=== PATIENT | female | born 1975 | race Caucasian/White ===

== ENCOUNTER 2020-04-18 16:50 | Emergency (ER) | payer SELFPAY ==
[2020-04-18 17:02] VITALS: BP 147/77; PULSE 86; RESP 16; TEMP 36.7; O2SAT 100
--- NOTE | 2020-04-18 17:12 | ED.EAR ---
HPI - Ear Problem General Chief complaint: Ear Stated complaint: Ear problem Time Seen by Provider: 04/18/20 17:07 Source: patient and RN notes reviewed Mode of arrival: ambulatory Limitations: no limitations History of Present Illness HPI Narrative: Patient presents today complaining of a possible insect into her left ear since last night. She reports a clogged sensation, but denies pain. Denies any additional symptoms. She has not tried any interventions prior to arrival. MD Complaint: other (Left ear clogging/possible foreign body) Related Data Home Medications Medication Instructions Recorded Confirmed drospirenone-e.[id number].FA 1 tablet PO DAILY 04/18/20 04/18/20 Allergies Allergy/AdvReac Type Severity Reaction Status Date / Time No Known Allergies Allergy Verified 04/18/20 17:03 Review of Systems Review of Systems: Narrative: CONSTITUTIONAL: Denies body aches, fever, chills, or sweats. EYES: Denies visual changes, redness, or discharge. ENT: Denies rhinorrhea, congestion, sore throat, or otalgia. Left ear-clogged with possible foreign body CARDIOVASCULAR: Denies chest pain, palpitations, or edema. RESPIRATORY: Denies cough or dyspnea. GASTROINTESTINAL: Denies abdominal pain, nausea, vomiting, or diarrhea. GENITOURINARY: Denies dysuria or hematuria. SKIN: Denies rash, itching, or wounds. MUSCULOSKELETAL: Denies back pain, joint pain, or myalgia. NEUROLOGIC: Denies headache, numbness, tingling, or weakness. PSYCH: Denies depression or anxiety. PMFSH Comments At time of signature, I have reviewed and agree with nursing past medical, surgical, social and family history unless otherwise noted. Please see nursing chart for further information. There is no relevant family history pertinent to the presenting complaint Exam Narrative: Exam Narrative: GENERAL: Well-appearing, well-nourished,tearful HEAD: Normocephalic, atraumatic. EYES: EOMI. No redness or drainage. Conjunctivae normal. ENT: Mucous membranes pink and moist. Nares clear. No rhinorrhea. TMs normal bilaterally with mild to moderate middle ear effusions bilaterally, left greater than right without evidence of infection. No foreign body noted. NECK: Normal AROM. Supple. No lymphadenopathy. CHEST: No respiratory distress. EXTREMITIES: Normal range of motion. No edema. SKIN: Warm, dry, no rash. Capillary refill normal. Normal skin turgor. NEURO: No focal deficits. Alert and oriented x3. Gait steady. PSYCH: Anxious Course Vital Signs Vital signs: Vital Signs Temperature 98.0 F 04/18/20 17:02 Pulse Rate 86 04/18/20 17:02 Respiratory Rate 16 04/18/20 17:02 Blood Pressure 147/77 H 04/18/20 17:02 Pulse Oximetry 100 04/18/20 17:02 Temperature 98.0 F 04/18/20 17:02 Pulse Rate 86 04/18/20 17:02 Respiratory Rate 16 04/18/20 17:02 Blood Pressure 147/77 H 04/18/20 17:02 Pulse Oximetry 100 04/18/20 17:02 Reviewed. Pt has been instructed to follow up with her PCP regarding her elevated blood pressure today. Medical Decision Making Differential Diagnosis Differential Diagnosis: Foreign body, otitis media, otitis externa, ruptured TM, serous otitis, eustachian tube dysfunction, cerumen impaction Vital Signs Vital Signs: Vital Signs Temperature 98.0 F 04/18/20 17:02 Pulse Rate 86 04/18/20 17:02 Respiratory Rate 16 04/18/20 17:02 Blood Pressure 147/77 H 04/18/20 17:02 Pulse Oximetry 100 04/18/20 17:02 Temperature 98.0 F 04/18/20 17:02 Pulse Rate 86 04/18/20 17:02 Respiratory Rate 16 04/18/20 17:02 Blood Pressure 147/77 H 04/18/20 17:02 Pulse Oximetry 100 04/18/20 17:02 Critical Care Time Critical Care Time Critical Care Time: No Discharge Plan Discharge Clinical Impression: Middle ear effusion Qualifiers: Laterality: left Qualified Code(s): H65.92 - Unspecified nonsuppurative otitis media, left ear Patient Disposition: Home, Self-Care Condition: Stable
== END 2020-04-18 17:15 | disposition home or self-care (01) ==
PROVIDERS: Emergency Provider Nurse Practitioner
DX: H65.92 Unspecified nonsuppurative otitis media, left ear (principal)
CPT/HCPCS: 99211; G0463

== ENCOUNTER 2021-04-20 07:50 | Outpatient (CLI) | payer OTHER, SELFPAY | END 2021-04-20 07:51 | disposition home or self-care (01) | LOC: ANHAUDIO 07:52 | PROVIDERS: Visit Provider Nurse Practitioner Family | DX: H90.3 Sensorineural hearing loss, bilateral (principal) | CPT/HCPCS: 92537; 92540; 92546; 92557; 92567 ==

== ENCOUNTER 2023-04-17 15:23 | Emergency (ER) | payer OTHER, SELFPAY ==
[2023-04-17 15:44] VITALS: BP 136/73; PULSE 80; RESP 16; TEMP 36.7; O2SAT 100
--- NOTE | 2023-04-17 17:19 | PC.NURSE ---
states unable to wait any longer and follow up with pmd. alert and oriented x4.
== END 2023-04-17 17:32 | disposition left against medical advice (07) ==
LOC: ANHED 17:30
DX: R10.9 Unspecified abdominal pain (principal)
CPT/HCPCS: 99199